=== PATIENT | female | born 1975 | race Caucasian/White ===

== ENCOUNTER → 2021-06-05 | Outpatient (CLI) | payer OTHER ==
--- NOTE | 2021-06-05 15:34 | RAD ---
AP and Lateral Views of the Chest 06/05/2021 1:54 PM Indication: Reason: QUESTIONABLE MELANOMA SPREADING Comparison: None Findings: There is no focal consolidation or infiltrate identified. The cardiomediastinal silhouette is within normal limits. There is no evidence of pneumothorax or pleural effusion. No acute osseous a bnormalities are identified. Impression: 1.No evidence of acute cardiopulmonary process. 2. There is concern for thoracic metastatic disease, contrast enhanced CT offers a much more sensitiv e evaluation Electronically signed by: Red Fierro MD (06/05/2021 3:32 PM) [id number]
== END ==
LOC: RAD 13:38
PROVIDERS: ATTEND Dermatology
DX: D03.59 Melanoma in situ of other part of trunk (principal)
CPT/HCPCS: 71046